=== PATIENT | male | born 1995 | race Caucasian/White ===

== ENCOUNTER 2016-07-31 08:48 | Inpatient (IN) | payer OTHER ==
[~2016-07-31] VITALS: Ht 177.8 cm; Wt 70.5 kg
[2016-07-31] MEDS ORDERED: LORazepam 1 mg Tablet PO ONE (08:55)
[2016-07-31 09:11] VITALS: BP 121/84; PULSE 110; RESP 18; O2SAT 99
[2016-07-31] MEDS ORDERED: Haloperidol 5 mg/mL Inj IM ONE (10:15)
--- NOTE | 2016-07-31 12:24 | ED.REPORT ---
HPI-Psychiatric Illness Date of Service Jul 31, 2016 ED Provider: Roman Rodgers DO A 21 year old male is presented to the ED by police with aggressive behavior towards family members. Per police he was locked out of his family's house and was banging his head on the door. The patient's mother has been trying to get the patient seen at [facility]. 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 He has done nothing overtly suicidal or homicidal. The patient denies banging his head on the wall and claims that injury to right hand is from work. He denies any suicidal or homicidal thoughts, or any visual or auditory hallucinations. He reports smoking marijuana a couple of nights ago. He denies any pertinent medical or surgical history but does report family history of drug addiction. He did have psychiatric evaluation 18 months ago. Nursing Notes Stated Complaint: MENTAL HEALTH Chief Complaint: Psychiatric Complaint Allergies: Coded Allergies: No Known Allergies (Unverified , 07/31/16) No Active Prescriptions or Reported Meds General Time Seen by MD: 08:54 Chief Complaint Other Risk-Psychiatric Illness Suicide Risk Stratification RF Statements: Risk factors N/A Past Medical History Past Medical History History of psychiatric issues. Past Surgical History non reported. Social History Drug Use: THC Ambulatory Status Independent Review of Systems Psychiatric: Denies: Homicidal ideation, Suicidal ideation Complete sys rev & neg: except as marked. Physical Exam Initial Vital Signs Vital Signs (First) Date Time Temp Pulse Resp B/P Pulse Ox O2 Delivery O2 Flow Rate FiO2 07/31/16 09:11 36.7 110 18 121/84 99 Room Air Initial VS: Reviewed General/Constitutional: Awake, Alert Generally cooperative. A little resistant. Neurologic: Oriented X3, Speech NL Psychiatric: Affect NL, Mood NL Head / Eyes: Atraumatic, Normocephalic, PERRL, EOMI ENT: Atraumatic, Airway patent, Mucous membranes moist, Pharynx NL Respiratory / Chest: Atraumatic, Breath sounds NL, Breath sounds = bilat, No respiratory distress, No rales, No rhonchi Cardiovascular: Heart rate NL, Regular rhythm, Heart sounds NL, No gallop, No murmurs, No rubs Abdomen: Atraumatic, No guarding, No rebound Skin: Atraumatic, Color NL, No rash, Warm, Dry Neck: Atraumatic, Full range of motion Upper Extremity / MS: Atraumatic, Full range of motion Wrist / Hand: Atraumatic, Full range of motion Lower Extremity / Pelvis / MS: Atraumatic, Full range of motion Interpretation & Diagnostics Lab Results Interpretation Result Diagram: 07/31/16 1418 07/31/16 1418 Test 07/31/16 09:23 07/31/16 14:18 Hold Urine Received (Received) White Blood Count 9.6th/mm3 (3.8-10.1) Red Blood Count 4.48mil/mm3 (4.40-5.80) Hemoglobin 13.3g/dL (13.8-17.2) Hematocrit 38.5% (41.0-50.0) Mean Corpuscular Volume 85.9fL (81-100) Mean Corpuscular Hemoglobin 29.7pg (27.0-35.0) Mean Corpuscular Hemoglobin Concent 34.5% (32.0-37.0) Red Cell Distribution Width 12.8% (12.3-15.4) Platelet Count 286bil/L (150-400) Neutrophils (%) (Auto) 80.0% (40-74) Lymphocytes (%) (Auto) 12.4% (14-46) Monocytes (%) (Auto) 7.2% (4-12) Eosinophils (%) (Auto) 0% (0-5) Basophils (%) (Auto) 0.2% (0-3) Sodium Level 139mEq/L (134-144) Potassium Level 4.2mEq/L (3.5-5.2) Chloride Level 102mEq/L (97-108) Carbon Dioxide Level 23mmol/L (18-29) Blood Urea Nitrogen 8mg/dL (6-20) Creatinine 0.76mg/dL (0.76-1.27) Estimat Glomerular Filtration Rate 139mL/min (>59) Glucose Level 88mg/dL (60-99) Calcium Level 9.0mg/dL (8.5-10.1) Total Bilirubin 0.4mg/dL (0.0-1.2) Aspartate Amino Transf (AST/SGOT) 20U/L (0-50) Alanine Aminotransferase (ALT/SGPT) 16U/L (0-44) Alkaline Phosphatase 65U/L (25-150) Total Protein 7.3g/dL (6.4-8.4) Albumin 4.5g/dL (3.4-5.0) Thyroid Stimulating Hormone (TSH) 1.360uIU/mL (0.450-4.500) Re-Eval/Medical Decision Med Decision/Clinical Course This is likely acute psychosis and grave disability. I think this patient should be evaluated the [facility] mental health professional and probably detained. Care transferred to Dr. dennis Rogers Source of Hx: Old records Re-Evaluation/Progress : Time of Eval: 09:15 Re-Evaluation/Progress Note: Patient aggression and non-cooperationun is rapidly escalating and he will need to be put into seclusion. Discharge & Departure Impression: Primary Impression: Agitation )( Condition at Discharge: Clear for psych facility Referrals: Madeline Carbone MD (PCP) Care Transferred to: [facility] Transferred at: 15:00 Jossy Attestation Portions of this note were transcribed by Fercho Curran. I, Dr. Rodgers, personally performed the history, physical exam, and medical decision-making; I reviewed and confirmed the accuracy of the information in the transcribed note. Signed by: Jossy Chavez, 07/31/2016, 1521. Roman Rodgers DO Jul 31, 2016 12:24 Fercho Curran Jul 31, 2016 15:17
[2016-07-31 14:26] LABS: BASOPHILS % (AUTO) 0.2 % (0-3); EOSINOPHILS % (AUTO) 0 % (0-5); MONOCYTES % (AUTO) 7.2 % (4-12); Mean Corpuscular Hemoglobin 29.7 pg (27.0-35.0); Mean Corpuscular Volume 85.9 fL (81-100); Platelet Count 286 bil/L (150-400)
[2016-07-31] MEDS ORDERED: Haloperidol 5 mg/mL Inj IM PRN (22:00)
[2016-07-31 22:16] VITALS: BP 120/70; PULSE 103; RESP 16; O2SAT 98
[2016-08-01] MEDS ORDERED: LORazepam 1 mg Tablet ONE (00:26)
[2016-08-01] MEDS ORDERED: LORazepam 1 mg Tablet PO PRN (00:30)
[2016-08-01] MEDS ORDERED: Alum-Mag Hydrox-Simeth 30 mL Suspension PO PRN (00:30)
[2016-08-01] MEDS ORDERED: Magnesium Hydroxide 10 mL Oral Concentration PO PRN (00:30)
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
--- NOTE | 2016-08-01 05:12 | NUR ---
nursing, nights, 11-7 s/o- has appeared to sleep after 0100 during q 15 minute assessments. a- no apparent distress. p- monitor behavior/emotional state, quality, times and amount of sleep, use and effect of medication. nay
[2016-08-01 11:50] VITALS: BP 127/72; PULSE 126; RESP 16
[2016-08-01] MEDS: BusPIRone 15 mg Dividose Tablet PO SCH ×3 (12:55→17:04)
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
--- NOTE | 2016-08-01 17:24 | NUR ---
Nurses Note Evening "I don't want any of your medications,I don't want to be drugged,Shut Up,the medications didn't help me,I'm not depressed,I don't have anxiety. Patient adamantly refused to take prescribed Prozac and Buspar. He became very agitated and was unable to receive information about the medications' purpose. His father visited briefly as well as his mother. Patients' mood has been extremely labile,suspicious which was exacerbated with medication administration. Will continue to offer support,make frequent contact,monitor behaviors and thought processes, maintain q 15min. checks for safety.
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
--- NOTE | 2016-08-01 21:33 | NUR ---
OBSERVATIONS 0900 TO 2130 Pt was isolative for most of the shift spending much of the day in his room. Pt became agitated when afternoon meds were distributed while father was visiting, refused meds until after father left. Mother visited as well. Maintained Q15 safety checks as directed.
--- NOTE | 2016-08-02 05:08 | NUR ---
Pt slept on and off throughout the shift, but did not come out of his room with any requests. On checks pt was asked if he wanted a sleep aid, PRNs or fluids and pt declined. Pt slept approx 7.5 hours. Monitored q 15 minute checks.
[2016-08-02] MEDS: BusPIRone 15 mg Dividose Tablet PO SCH ×2 (08:18→20:36)
[2016-08-02 09:44] VITALS: BP 119/65; PULSE 104; RESP 16
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
--- NOTE | 2016-08-02 14:19 | NUR ---
NURSING NOTE DAYSHIFT Mood= "fine" Affect= nervous and guarded in conversation w/this consumer loan underwriter, more at ease amongst his peers Behavior= attended community meeting, attended rec group, played video games w/a peer, out of room for all meals. Watched a movie. Med compliant and did not hesitate or protest his medications. Thought processes= pt. denied all issues when this consumer loan underwriter assessed him throughout the shift. He is slightly pressured and loud whenever this consumer loan underwriter speaks w/him. Denies AH/VH/SI/HI.
[2016-08-02] MEDS ORDERED: Magnesium Hydroxide 10 mL Oral Concentration PO PRN (15:25)
[2016-08-02] MEDS ORDERED: Alum-Mag Hydrox-Simeth 30 mL Suspension PO PRN (15:25)
[2016-08-02] MEDS ORDERED: Benzocaine-Menthol Lozenge 2/Pkg PO PRN (15:25)
--- NOTE | 2016-08-02 20:56 | NUR ---
Observations 0900 to 2130 Pt affect and mood was guarded, withdrawn, isolative, flat and anxious. Pt attend community meeting and set a daily goal. Pt speech and eye contact was good. Pt attended group and unit activities but only briefly. Pt played the Wii with peer for a short time. Pt was social with staff and select peers when approached. Pt attended meals in D.R. and ate 50% of breakfast and 100% of his lunch and dinner. Pt maintained behavior throughout the shift. Pt was polite, pleasant and cooperative. Pt was in his room during free time. Pt took a shower and attended to ADL's. Pt was observed every 15 minutes throughout the shift as ordered. Pt is currently watching TV with peers and eating a snack. Pt parents came to see him and it appeared to go well.
--- NOTE | 2016-08-03 04:50 | NUR ---
NURS NOC 12H Mood: "Im fine." Did not endorse depression, anxiety. Affect: Anxious, restricted. Appeared nervous and hyperactive when approached. Behavior: Pt in day room watching television at start of shift. Pt slept 2200 to present. Thought Process: Difficult to assess, pt showed little interest in interacting with staff.
[2016-08-03] MEDS: BusPIRone 15 mg Dividose Tablet PO SCH ×2 (08:28→20:05)
--- NOTE | 2016-08-03 14:45 | NUR ---
Observations 0900 to 1500 Pt affect and mood was flat, isolative and withdrawn. Pt attend community meeting and set a daily goal. Pt rated his mood6 out of 10 with 10 being the best. Pt speech and eye contact was good. Pt was minimally social with staff and select peers when approached. Pt attended meals in D.R. and ate 100% of breakfast and lunch. Pt maintained behavior throughout the shift. Pt was polite, pleasant and cooperative. Pt was in his room during free time. Pt went out on patio with staff to get some fresh air. Pt was observed every 15 minutes throughout the shift as ordered.
[2016-08-03 15:44] VITALS: BP 126/80; PULSE 76; RESP 18
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
--- NOTE | 2016-08-03 16:46 | NUR ---
nursing note 7am-7pm S)"I want to get better sleep tonight" O) reported mood 11/07 denies any depression or anxiety, no AH/VH, spent most of time in room, states believes he will be leaving on Wednesday "if I do good on the medication" denies any problems, dressed in scrubs, ate meals spent sometime watching TV A)compliant, took medications with out problems, isolates P) monitor effectiveness of medications, encourage participation in treatment
--- NOTE | 2016-08-03 17:13 | NUR ---
Academic Affairs Coordinator./ c.m. S.:"I'm fine... alright." O.: met with pt. and MD together. Pt. said that he had only 4 hrs of "solid sleep and after that it was broken." He denied SI/HI, denied AH/VH, denied paranoid/delusional thoughts, denied depression. He rated anxiety at 3-4/10. He said that he talked to his parents and he would be able to go back home. He looked briefly through PTSD handout that senior technical writer gave him yesterday but he didn't read it well. He agreed to go though that handout again and to jennifer symptoms that were relevant to him. He agreed that meds were helping him. He has PCP at [facility] in [place] and he agreed to see his DrSea for meds. He will think about possible counseling A.: pt. is cooperative, pleasant, has poor eye contact and a flat affect. P.: monitor behavior, work on Safety plan and follow up, monitor meds intake; follow care plan.
--- NOTE | 2016-08-04 00:16 | NUR ---
Behavior Pt's room needed for another patient I: Pt very cooperative with moving to a new room. Compliant with eds E: Care ongoing
--- NOTE | 2016-08-04 02:20 | NUR ---
Observations 1900 to 0700 Pt kept to himself for the most part. pt did come out on a few occasions. Pt was polite and cooperative with both staff and peers. Pt switched rooms due to the fact of another Pt needing a hospital bed. Pt was polite and had no issues changing rooms. Pt first appeared asleep at 21:45 and was observed every 15 minutes through the night as directed
[2016-08-04] MEDS: BusPIRone 15 mg Dividose Tablet PO SCH ×2 (08:02→21:11)
--- NOTE | 2016-08-04 10:22 | NUR ---
Pattern Chart Writer./ c.m. S.:"I'm good, feel pretty stable." O.: met with pt. and MD together in pt.'s room. He "slept good" last night. He denied SI/HI, denied AH/VH or paranoid/delusional thoughts. He denied anxiety or depression. He agreed to work on his anger coping skills. He felt positive about going home tomorrow. A.: pt. is cooperative, pleasant, has better eye contact, looks calmer. P.: monitor behavior, work on Safety plan and follow up; follow care plan.
--- NOTE | 2016-08-04 17:06 | NUR ---
Nurses note 7am-7pm O) pt more social today, still seems a little uncomfortable around staff, little eye contact and nervous movements, pleasant cooperative, working on safety plan, is wearing scrubs and appears groomed, ate meals and attended groups, denies anxiety or depression no SI A) anticipating DC tomorrow, compliant P) monitor medication effectiveness
--- NOTE | 2016-08-04 17:24 | NUR ---
Observations [id number] Pt was asleep upon start of shift. He took a shower today and also asked for new clothing. His demeanor appears to be jumpy and anxious. Pt was observed spending more time in common areas, and in room reading. He is friendly upon approach. Pt did not attend groups. He was observed every 15 minutes of shift as directed.
--- NOTE | 2016-08-04 20:39 | NUR ---
Obs Dayshift Pt spent most of the day in his room, sitting on his bed. Pt did get up in the evening, playing cards w/ peers, talking about the meaning of life w/ one peer. Pt had a visit from Dad during the day, sitting on the table in the M/P rm w/ an intense stare and talking very close at Dad. Mother visited in the evening, pt mostly continued to play cards and very little engagement w/ Mom. Pt is superficial w/ staff. Pt is not well engaged in groups. Good meals 100%, Ok ADL's
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
--- NOTE | 2016-08-05 01:31 | NUR ---
Observations 1900 to 0700 Pt kept to himself for the most part. pt did come out on a few occasions. Pt was polite and cooperative with both staff and peers. Pt first appeared asleep at 21:30 and was observed every 15 minutes through the night as directed
--- NOTE | 2016-08-05 05:23 | NUR ---
Sleep 11p-7a Adequate sleep through the night with no noted distress or awakening per protocol checks. Total sleep 7.5+ hours.
--- NOTE | 2016-08-05 05:40 | NUR ---
Nursing Note [id number] Pt noted in milieu , minimal socializing with peers and staff noted. Isolating to room later part of shift. Pt appears guarded and minimal eye contact noted. No refused HS meds and no PRN meds requested. Pt behaviors cooperative and polite. Q15 min safety checks done per protocol, no distress noted on shift. WCTM sleep, safety, behavior
[2016-08-05] MEDS: BusPIRone 15 mg Dividose Tablet PO SCH (07:57)
[2016-08-05 10:37] VITALS: BP 134/86; PULSE 110; RESP 16
--- NOTE | 2016-08-05 12:26 | PCM.DIMED ---
Discharge Instructions Date of Service Aug 05, 2016 Dates of Hospitalization Jul 31, 2016 at 23:26 Discharge Diagnosis Discharge Diagnosis [place] I. 1. 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 2. Posttraumatic stress disorder. 3. Marijuana use disorder 4. Alcohol use disorder [place] II. Defer. [place] III. None. [place] IV. Moderate. [place] V. Current Global Assessment of Functioning equal to 50 Test Results CBC Test 07/31/16 14:18 White Blood Count 9.6th/mm3 (3.8-10.1) Red Blood Count 4.48mil/mm3 (4.40-5.80) Hemoglobin 13.3g/dL (13.8-17.2) Hematocrit 38.5% (41.0-50.0) Mean Corpuscular Volume 85.9fL (81-100) Mean Corpuscular Hemoglobin 29.7pg (27.0-35.0) Mean Corpuscular Hemoglobin Concent 34.5% (32.0-37.0) Red Cell Distribution Width 12.8% (12.3-15.4) Platelet Count 286bil/L (150-400) Neutrophils (%) (Auto) 80.0% (40-74) Lymphocytes (%) (Auto) 12.4% (14-46) Monocytes (%) (Auto) 7.2% (4-12) Eosinophils (%) (Auto) 0% (0-5) Basophils (%) (Auto) 0.2% (0-3) CMP Test 07/31/16 14:18 Sodium Level 139mEq/L Potassium Level 4.2mEq/L Chloride Level 102mEq/L Carbon Dioxide Level 23mmol/L Blood Urea Nitrogen 8mg/dL Creatinine 0.76mg/dL Estimat Glomerular Filtration Rate 139mL/min Glucose Level 88mg/dL Calcium Level 9.0mg/dL Total Bilirubin 0.4mg/dL Aspartate Amino Transf (AST/SGOT) 20U/L Alanine Aminotransferase (ALT/SGPT) 16U/L Alkaline Phosphatase 65U/L Total Protein 7.3g/dL Albumin 4.5g/dL Thyroid Stimulating Hormone (TSH) 1.360uIU/mL Diet No restrictions Activity No restrictions Patient Instructions Should you have any thoughts of harming yourself or others, please call the crisis line, your provider, 911, or go to the nearest Emergency Department. Do not change or discontinue your medications without discussing with your provider. You have been given a prescription for 30 days supply of your medication Follow-up plan Psychiatric follow-up Dr. Neptali Espinosa on 08/10/16 at 2:00 [facility] [address] [facility] [id number] Zeeshan Kaur MD Aug 05, 2016 12:26
[2016-08-05] MEDS ORDERED: FLUO20CA25 PO (12:28)
[2016-08-05] MEDS ORDERED: BUSP15TA3 PO (12:28)
--- NOTE | 2016-08-05 14:11 | NUR ---
Nursing Discharge Note: Patient cooperative with discharge process. Acknowledges understanding of d/c instructions and has a copy with them upon leaving unit at 1326. Belongings accounted for and with patient. Prescriptions faxed to patients pharmacy at [facility]. Hard copies with patient. Patient denies harmful thoughts and hallucinations at this time.
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
--- NOTE | 2016-08-05 17:18 | NUR ---
Case Management/Counselor: S: "I'm pretty calm and peaceful." O: Patient slept 5.5 hours last night per staff. He denies S/I and H/I. He stated that he does not hear the voices today. He denies visual hallucinations. Depression is 0/10 and anxiety is 0/10. When asked his mood, patient stated, "Optimistic." Out-patient appointment, Dr. Neptali Espniosa, 08/10/16 at 2:00pm. A: Patient is cooperative, pleasant, restricted affect, hopeful. P: Follow your care plan, coordinate out-patient providers.
== END 2016-08-05 13:26 | disposition home or self-care (01) | DRG 882 ==
LOC: SED 09:59 → MHC 23:26
PROVIDERS: ADMIT Psychiatry & Neurology Psychiatry; ATTEND Psychiatry & Neurology Psychiatry
DX: F43.25 Adjustment disorder with mixed disturbance of emotions and conduct (principal); F43.10 Post-traumatic stress disorder, unspecified; F12.90 Cannabis use, unspecified, uncomplicated

== ENCOUNTER 2016-10-23 01:03 | Emergency (ER) | payer OTHER ==
[~2016-10-23] VITALS: Ht 177.8 cm; Wt 72.7 kg
[~2016-10-23 01:03] MED LIST: BUSP15TA3 PO; FLUO20CA25 PO
[2016-10-23 01:08] VITALS: BP 131/83; PULSE 82; RESP 18; O2SAT 99
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
[2016-10-23 03:32] LABS: BASOPHILS % (AUTO) 0.3 % (0-3); EOSINOPHILS % (AUTO) 0.2 % (0-5); MONOCYTES % (AUTO) 7.4 % (4-12); Mean Corpuscular Hemoglobin 29.6 pg (27.0-35.0); Mean Corpuscular Volume 83.2 fL (81-100); NEUTROPHILS % (AUTO) 75.8 % (40-74); Platelet Count 321 bil/L (150-400)
[2016-10-23 04:00] VITALS: BP 134/82; PULSE 86; RESP 20; O2SAT 98
[2016-10-23 06:18] VITALS: BP 129/75; PULSE 96; RESP 14; O2SAT 99
[2016-10-23 10:20] VITALS: BP 131/63; PULSE 81; RESP 20; O2SAT 97
[2016-10-23] MEDS ORDERED: BusPIRone 15 mg Dividose Tablet PO STA (11:19)
[2016-10-23 15:05] VITALS: BP 121/67; PULSE 87; RESP 20; O2SAT 97
[2016-10-23 15:58] VITALS: BP 138/78; PULSE 89; RESP 20; O2SAT 98
== END 2016-10-23 16:01 | disposition home or self-care (01) ==
LOC: SED 01:03
DX: F32.9 Major depressive disorder, single episode, unspecified (principal); F43.20 Adjustment disorder, unspecified; R45.851 Suicidal ideations; F31.9 Bipolar disorder, unspecified; F17.200 Nicotine dependence, unspecified, uncomplicated; F43.10 Post-traumatic stress disorder, unspecified
CPT/HCPCS: 36415; 80053; 82075; 84443; 85025; 99284; Q0177

== ENCOUNTER 2016-10-25 11:07 | Emergency (ER) | payer OTHER ==
[~2016-10-25] VITALS: Ht 177.8 cm; Wt 73.6 kg
[2016-10-25 11:10] VITALS: BP 143/96; PULSE 99; RESP 18; O2SAT 100
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
[2016-10-25] MEDS ORDERED: FLUO20CA25 PO (12:50)
[2016-10-25] MEDS ORDERED: BUSP7.5T5 PO (12:50)
== END 2016-10-25 13:12 | disposition home or self-care (01) ==
LOC: SED 11:07
DX: F43.25 Adjustment disorder with mixed disturbance of emotions and conduct (principal); F32.9 Major depressive disorder, single episode, unspecified